=== PATIENT | male | born 1935 | race Two or more races ===

== ENCOUNTER 2017-03-04 06:49 | Inpatient (IN) | payer OTHER, BC ==
[2017-03-04] MEDS ORDERED: NS 1,000 ML IV ONE (07:01)
--- NOTE | 2017-03-04 07:05 | EDPHY ---
HPI/HX/ROS/PE/MDM Narrative: CHIEF COMPLAINT: GI Bleed HPI: This patient is an 81 year old male arriving with his family complaining of bloody stools onset 5:30am today. He has history of an upper GI bleed related to stomach ulcers in 2005 which resulted in cardiac arrest and transfusion of 10 units of blood, managed in [place]. His last colonoscopy was about 10 years ago, and was unremarkable. Yesterday, he felt well and had normal bowel movements. This morning he woke up at 5:30 and needed to go to toilet urgently. He had a large bowel movement consisting of lots of red blood with dark clots. He feels well otherwise, and denies abdominal pain, fever, or other associated symptoms. He takes daily 81mg Aspirin but is not anticoagulated otherwise. REVIEW OF SYSTEMS: Aside from elements discussed in the HPI, a comprehensive 10-point review of systems was reviewed and is negative. PMH: GI Bleed, Hernia Repair, Stent X1, TURP SOCIAL HISTORY: , lives in [place]. 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 ENT:Eyes are normal to inspection. ENT inspection normal. Neck: Normal inspection. Full range of motion. Respiratory:No respiratory distress. Breath sounds normal bilaterally. Cardiovascular: Regular rate and rhythm. Strong peripheral pulses. Normal cap refill. Abdomen:The abdomen is nontender to palpation. There are no peritoneal signs. There are normal bowel sounds. Back: Normal to inspection. No tenderness to palpation. Skin: Normal color. No rash. Warm and dry. Extremities: Normal appearance. Full range of motion. Neuro: Oriented x3. Normal motor function. Normal sensory function. ED Course: 81 year old male presents with hematochezia onset two hours ago. Physical exam unremarkable. Plan for labs including CBC, BMP, PTPTT. IV established, plan to administer 1L IV NS. The patient is well-appearing and hemodynamically stable. 7:[address] 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 He recommends admission for observation. 7:43 Spoke with hospitalist service. Dr. Vidales accepts admission to med/surg. Spoke with GI, they plan to scope the patient around 1pm today. Plan to prep patient for colonoscopy with [facility]. MDM: This patient presents with what appears to be a lower GI bleed. Given his history of massive upper GI bleed causing cardiac arrest, I think we need to tread cautiously. The patient will be admitted to hospitalist service and scoped by GI later today. I see no evidence for acute diverticulitis, bowel obstruction, bowel perforation or sepsis. - Data Points Laboratory Results: Laboratory Results 03/04/17 07:15 03/04/17 07:15 03/04/17 03/04/17 03/04/17 07:15 07:15 07:15 WBC 7.87 10^3/uL 10^3/uL (3.80-9.50) RBC 5.00 10^6/uL 10^6/uL (4.40-6.38) Hgb 15.2 g/dL g/dL (13.7-17.5) Hct 45.8 % % (40.0-51.0) MCV 91.6 fL fL (81.5-99.8) MCH 30.4 pg pg (27.9-34.1) MCHC 33.2 g/dL g/dL (32.4-36.7) RDW 13.4 % % (11.5-15.2) Plt Count 201 10^3/uL 10^3/uL (150-400) MPV 10.5 fL fL (8.7-11.7) Neut % (Auto) 58.7 % % (39.3-74.2) Lymph % (Auto) 30.0 % % (15.0-45.0) [place] % (Auto) 6.1 % % (4.5-13.0) Eos % (Auto) 3.8 % % (0.6-7.6) Baso % (Auto) 1.1 % % (0.3-1.7) Nucleat RBC Rel Count 0.0 % % (0.0-0.2) Absolute Neuts (auto) 4.62 10^3/uL 10^3/uL (1.70-6.50) Absolute Lymphs (auto) 2.36 10^3/uL 10^3/uL (1.00-3.00) Absolute Monos (auto) 0.48 10^3/uL 10^3/uL (0.30-0.80) Absolute Eos (auto) 0.30 10^3/uL 10^3/uL (0.03-0.40) Absolute Basos (auto) 0.09 10^3/uL 10^3/uL (0.02-0.10) Absolute Nucleated RBC 0.00 10^3/uL 10^3/uL (0-0.01) Immature Gran % 0.3 % % (0.0-1.1) Immature Gran # 0.02 10^3/uL 10^3/uL (0.00-0.10) PT 15.3 SEC H SEC (12.0-15.0) INR 1.21 H (0.83-1.16) APTT 31.8 SEC SEC (23.0-38.0) Sodium 140 mEq/L mEq/L (134-144) Potassium 4.2 mEq/L mEq/L (3.5-5.2) Chloride 102 mEq/L mEq/L (97-110) Carbon Dioxide 26 mEq/l mEq/l (22-31) Anion Gap 12 mEq/L mEq/L (8-16) BUN 25 mg/dL H mg/dL (7-23) Creatinine 1.6 mg/dL H mg/dL (0.7-1.3) Estimated GFR 41 Glucose 98 mg/dL mg/dL (70-100) Calcium 9.7 mg/dL mg/dL (8.5-10.4) Medications Given: Discontinued Medications Sodium Chloride (Ns) 1,000 mls @ 0 mls/hr IV EDNOW ONE; Wide Open PRN Reason: Protocol Stop: 03/04/17 07:02 Last Admin: 03/04/17 07:21 Dose: 1,000 mls General Time Seen by Provider: 03/04/17 07:00 Initial Vital Signs: Initial Vital Signs Temperature (C) 36.9 C 03/04/17 06:53 Heart Rate 88 03/04/17 06:53 Respiratory Rate 18 03/04/17 06:53 Blood Pressure 169/101 H 03/04/17 06:53 O2 Sat (%) 97 03/04/17 06:53 O2 Delivery Mode Room Air Allergies/Adverse Reactions: arsenic [Arsenic] Allergy (Intermediate, Verified 02/07/13 11:20) Rash omeprazole [Omeprazole] Allergy (Intermediate, Verified 08/30/09 02:37) latex Allergy (Mild, Verified 02/07/13 11:20) Rash SEASONAL Allergy (Mild, Uncoded 02/07/13 11:20) THROAT AND NOSE IRRITATION Home Medications: Medication Instructions Recorded Ascorbic Acid [Vitamin C 500 mg 1,000 mg PO DAILY 02/05/13 (OTC)] Atorvastatin Calcium [Lipitor 10 10 mg PO DAILY 02/05/13 mg (RX)] Cholecalciferol Vit D3 [Vitamin D3 2,000 units PO DAILY 02/05/13 2000 units (OTC)] Ranitidine HCl [Ranitidine HCl 150 150 mg PO HS 02/05/13 mg] Aspirin EC [Aspirin EC 81 mg (OTC)] 81 mg PO DAILY 02/13/13 Herbals/Supplements -Info Only 1 ea PO DAILY 03/04/17 Losartan/Hydrochlorothiazide 1 each PO DAILY 03/04/17 [Losartan-Hctz 100-25 Mg Tab] Magnesium Oxide [Magnesium Oxide 400 mg PO DAILY 03/04/17 400 mg (*)] Montelukast Sodium [Singulair 10 10 mg PO DAILY@1800 03/04/17 mg (*)] Multivitamins [Multivitamin (*)] 1 each PO DAILY 03/04/17 Departure - Departure Disposition: [facility] Inpatient Acute Clinical Impression: Hematochezia Condition: Fair Report Scribed for: Dylon Perdomo Report Scribed by: Shaina Butts Date of Report: 03/04/17 Time of Report: 07:04 Physician Review and Approval Statement: Portions of this note were transcribed by an ED scribe. I personally performed the history, physical exam, and medical decision making; and confirm the accuracy of the information in the transcribed note.
[2017-03-04 07:27] LABS: % IMMATURE GRANULYOCYTES 0.3 % (0.0-1.1); ABSOLUTE IMMATURE GRANULOCYTES 0.02 10^3/uL (0.00-0.10); ADD DIFF? NO; ADD MORPH? NO; ADD SCAN? NO; ATYPICAL LYMPHOCYTE FLAG 10 (0-99); FRAGMENT RBC FLAG 0 (0-99); HEMATOCRIT 45.8 % (40.0-51.0); HEMOGLOBIN 15.2 g/dL (13.7-17.5); LEFT SHIFT FLG 0 (0-99); LIPEMIA HEMOLYSIS FLAG 80 (0-99); MEAN CELL HEMOGLOBIN 30.4 pg (27.9-34.1); MEAN CELL HEMOGLOBIN CONCENTR. 33.2 g/dL (32.4-36.7); MEAN CELL VOLUME 91.6 fL (81.5-99.8); MEAN PLATELET VOLUME 10.5 fL (8.7-11.7); PLATELET CLUMPS FLAG 10 (0-99); PLATELET COUNT 201 10^3/uL (150-400); RED CELL DISTRIBUTION WIDTH 13.4 % (11.5-15.2)
[2017-03-04 07:36] LABS: INR 1.21 (0.83-1.16); PROTIME(PATIENT) 15.3 SEC (12.0-15.0)
[2017-03-04 07:37] LABS: APTT 31.8 SEC (23.0-38.0)
[2017-03-04 07:44] LABS: ANION GAP 12 mEq/L (8-16); CALCIUM 9.7 mg/dL (8.5-10.4); CARBON DIOXIDE 26 mEq/l (22-31); CHLORIDE 102 mEq/L (97-110); CREATININE 1.6 mg/dL (0.7-1.3); GLOMERULAR FILTRATION RATE 41; GLUCOSE 98 mg/dL (70-100); POTASSIUM 4.2 mEq/L (3.5-5.2); SODIUM 140 mEq/L (134-144)
[2017-03-04] MEDS ORDERED: GOLYTELY 4000 ML BTL PO ONE (07:45)
[2017-03-04] MEDS ORDERED: ACETAMINOPHEN 325 MG TAB PO PRN (08:23)
[2017-03-04] MEDS ORDERED: ONDANSETRON 4 MG/2 ML VIAL IVP PRN (08:23)
[2017-03-04] MEDS ORDERED: ONDANSETRON DISINTEGRATING 4 MG TAB PO PRN (08:23)
[2017-03-04] MEDS ORDERED: NS 1,000 ML IV SCH (08:30)
--- NOTE | 2017-03-04 10:40 | GHP ---
[f rep st] HISTORY AND PHYSICAL DATE OF ADMISSION: 03/04/2017 CHIEF COMPLAINT: Hematochezia. HISTORY OF PRESENT ILLNESS: An 81-year-old male with a history of coronary artery disease, hyperten aparna, and CKD, as well as a previous upper GI bleed leading to cardiac arrest and a 10 unit blood tr ansfusion, who presents with sudden onset of hematochezia the morning of presentation. Patient repo rts being in his normal state of health the day previous, normal oral intake, no abdominal pain and normal stools, when he awoke at 5:30 this morning with a sense of urgency needing to pass stool, and when he did, it was bright red blood. Patient has had multiple episodes of bright red bloody stool s this morning prompting his presentation to the emergency department for evaluation. In the ED, he denies any light headedness, vision changes, nausea, vomiting, or abdominal pain. The bloody stool s have persisted in the emergency department and upon arrival to the floor. Patient reports his las t GI bleed was much different with bloody vomit, symptoms of lightheadedness, and pain. Patient on my evaluation, denies palpitation, reports feeling a little bit tremulous and weak. Otherwise, no s ubjective systemic symptoms. PAST MEDICAL HISTORY: 1. Coronary artery disease. 2. Hypertension. 3. CKD. 4. History of upper gastrointestinal bleed, treated for H pylori. 5. Hiatal hernia. SOCIAL HISTORY: Negative for tobacco, alcohol, or illicit drugs. FAMILY HISTORY: Negative for colon cancer or lower GI bleeds. ADVANCED DIRECTIVES: Patient is full cor, full tube. REVIEW OF SYSTEMS: A 10-point review of systems is negative with the exception of that reported in the HPI. PHYSICAL EXAMINATION: VITAL SIGNS: Blood pressure 175/101, heart rate 97, respiratory rate 16, 94% on room air, 36.5. GENERAL: This is a healthy-appearing elderly male in no acute distress. HEENT : Notable for moist mucous membranes. Eye exam is negative for any icterus. CARDIAC: Patient is regular rate and rhythm. PULMONARY: Clear to auscultation bilaterally. GASTROINTESTINAL: Positiv e bowel sounds. ABDOMEN: Soft and nontender to palpation in all 4 quadrants. MUSCULOSKELETAL: Ne gative for any lower extremity edema. SKIN: Negative for any rashes. NEUROLOGIC: He is alert and oriented x3. PSYCHIATRIC: He is pleasant and cooperative on interview and examination. DATA: White count 7.8, hematocrit 45, hemoglobin of 15.2, INR 1.2, creatinine 1.6 which appears dee r baseline. Telemetry which I personally reviewed and interpreted shows sinus rhythm in the 80s. ASSESSMENT AND PLAN: This is an 81-year-old male presenting with bright red blood per rectum. 1. Acute lower gastrointestinal bleed. Patient has a concerning upper gastrointestinal bleed histo ry, although I suspect the source is quite different. Made the patient n.p.o. I have initiated a f luid bolus, typed and crossed in the emergency department, continuing maintenance fluids and preppin g with [facility] for anticipated colonoscopy this afternoon. Will watch the patient's stooling close ly, as well as his vital signs, and communicate with Gastroenterology if the acuity of his bleeding changes in any way. Will obviously hold all cardiac medications including aspirin at this time. 2. Coronary artery disease. 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 W ill hold his medications in the acute setting of gastrointestinal bleed. Can reinitiate afterward. 3. Chronic kidney disease. Patient appears near his previously measured baselines again and is rec eiving IV fluid resuscitation. We can follow his renal function after his procedure. PROPHYLAXIS: Heparin is contraindicated. Will place SCDs. DIET: N.p.o. for the GI suite. DISPOSITION: I am expecting greater than 2 midnights, as the patient is presenting with a precipito us GI bleed, will require diagnostics, potential intervention, and postprocedural monitoring. I hav e discussed the case with the emergency room physician. Patient will be triaged to the medical/surg [facility] floor for care. /[id number]/MODL
[2017-03-04 11:46] LABS: HEMATOCRIT 40.4 % (40.0-51.0); HEMOGLOBIN 13.5 g/dL (13.7-17.5)
[2017-03-04] MEDS ORDERED: MIDAZOLAM 2 MG/2 ML VIAL IVP ONE (13:11)
--- NOTE | 2017-03-04 13:13 | PDANEPAE ---
ANE Past Medical History - Cardiovascular History Hx Hypertension: Yes Hx Arrhythmias: No Hx Chest Pain: No Hx Coronary Artery / Peripheral Vascular Disease: Yes Cardiovascular History Comment: LaD stent, 10 years ago, now good exercise tolerance, asymptomatic - Pulmonary History Hx Oxygen in Use at Home: No Hx Sleep Apnea: No Sleep Apnea Screening Result - Last Documented: Positive - Endocrine History Hx Diabetes: No ANE Patient History - Allergies Allergies/Adverse Reactions: arsenic [Arsenic] Allergy (Intermediate, Verified 02/07/13 11:20) Rash omeprazole [Omeprazole] Allergy (Intermediate, Verified 08/30/09 02:37) latex Allergy (Mild, Verified 02/07/13 11:20) Rash SEASONAL Allergy (Mild, Uncoded 02/07/13 11:20) THROAT AND NOSE IRRITATION - Home Medications Home Medications: Ascorbic Acid [Vitamin C 500 mg (OTC)] 1,000 mg PO DAILY 02/05/13 [Last Taken ] Atorvastatin Calcium [Lipitor 10 mg (RX)] 10 mg PO DAILY 02/05/13 [Last Taken ] Cholecalciferol Vit D3 [Vitamin D3 2000 units (OTC)] 2,000 units PO DAILY [Last Taken 03/03/17] Ranitidine HCl [Ranitidine HCl 150 mg] 150 mg PO HS 02/05/13 [Last Taken ] Aspirin EC [Aspirin EC 81 mg (OTC)] 81 mg PO DAILY 02/13/13 [Last Taken 03/03/17 ] Herbals/Supplements -Info Only 1 ea PO DAILY 03/04/17 [Last Taken Unknown] Losartan/Hydrochlorothiazide [Losartan-Hctz 100-25 Mg Tab] 1 each PO DAILY 03/04 [Last Taken 03/03/17] Magnesium Oxide [Magnesium Oxide 400 mg (*)] 400 mg PO DAILY 03/04/17 [Last Taken 03/03/17] Montelukast Sodium [Singulair 10 mg (*)] 10 mg PO DAILY@1800 03/04/17 [Last Taken 03/03/17] Multivitamins [Multivitamin (*)] 1 each PO DAILY 03/04/17 [Last Taken 03/03/17] - NPO status NPO Since - Liquids (Date): 03/04/17 NPO Since - Liquids (Time): 11:15 NPO Since - Solids (Date): 03/03/17 NPO Since - Solids (Time): 21:00 - Smoking Hx Smoking Status: Never smoked ANE Labs/Vital Signs - Labs Result Diagrams: 03/04/17 11:30 03/04/17 07:15 - Vital Signs Blood Pressure: 145/84 Heart Rate: 76 Respiratory Rate: 16 O2 Sat (%): 94 Height: 182.88 cm Weight: 78.018 kg ANE Physical Exam - Airway Neck exam: decreased ROM Mouth exam: normal dental/mouth exam - Pulmonary Pulmonary: no respiratory distress - Cardiovascular Cardiovascular: regular rate and rhythym - ASA Status ASA Status: II
[2017-03-04] MEDS ORDERED: fentaNYL 100 MCG/2 ML INJ ONE (13:16)
[2017-03-04] MEDS ORDERED: PROPOFOL/EMULSION 500 MG/50 ML BOTTLE IV ONE (13:16)
[2017-03-04] MEDS ORDERED: NALOXONE HCL 0.4 MG/ML INJ IVP PRN (13:45)
--- NOTE | 2017-03-04 13:50 | GCON ---
[f rep st] CONSULTATION DATE OF CONSULTATION: 03/04/2017 REFERRING PHYSICIAN: Dr. Ambar Noriega REASON FOR CONSULTATION: Hematochezia. CHIEF COMPLAINT: Hematochezia. HISTORY OF PRESENT ILLNESS: The patient is an 81-year-old male with a history of coronary artery disease, hypertension, chronic kidney disease, who presents to [facility] with complaints of hematochezia. The patient was in normal state of health until this morning when he suddenly awoke and had a bowel movement with a large amount of bright red blood. He did experience urgency. He had several similar episodes and thus, came to the emergency room for evaluation. He denies any exacerbating or alleviating factors to his symptoms. He denies any abdominal pain, change in bowel habits, chest pain, shortness of breath, or fevers. He did have a colonoscopy performed by Dr. Lemons in our group on 05/06/2008. He was noted to have sigmoid diverticulosis I am being asked by Dr. Noriega in consultation to evaluate the patient in regard to hematochezia. PAST MEDICAL HISTORY: 1. Coronary artery disease. 2. Hypertension. 3. Chronic kidney disease. 4. A prior history of upper GI bleed in [place] requiring 10 units of packed RBCs. 5. Hypercholesterolemia. PAST SURGICAL HISTORY: Hernia repair. TURP. ALLERGIES: Omeprazole, latex. MEDICATIONS: Atorvastatin, vitamin D3, magnesium, ranitidine, 81 mg of aspirin , losartan/hydrochlorothiazide. 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 FAMILY HISTORY: No history of colon cancer. REVIEW OF SYSTEMS: A 14-point comprehensive review of systems was asked. Pertinent positives and negatives per HPI. PHYSICAL EXAM: VITAL SIGNS: Blood pressure 175/101, pulse 98, respirations 16 , temperature 36.5. GENERAL: Awake, alert, oriented x3. No distress. HEENT: Anicteric. Moist mucosa. NECK: No JVD. CARDIOVASCULAR: Regular rate and rhythm. Positive S1, S2. LUNGS: Clear to auscultation bilaterally. No wheezes, rales or rhonchi. ABDOMEN: Soft, nontender, nondistended. Positive bowel sounds. No guarding. No rebound. EXTREMITIES: No clubbing, cyanosis or edema. NEUROLOGIC: Cranial nerves 2 through 12 grossly intact. PSYCH: Normal affect. SKIN: No rash. LYMPH: No lymphadenopathy. MUSCULOSKELETAL: No obvious joint effusions. LABORATORY: Hemoglobin 13.5, hematocrit 40.4, platelets 201. INR 1.21. Sodium 140, potassium 4.2, chloride 102, bicarb 26, BUN 25, creatinine 1.6. ASSESSMENT AND PLAN: 1. Hematochezia -- did have a prior colonoscopy in 2007 with diverticulosis found. Etiology? Diverticular bleed versus hemorrhoidal versus other? I recommend to proceed with colonoscopic evaluation. The risks, benefits, and alternatives of the procedure were discussed in great detail with the patient. The risk of infection, bleeding, perforation, and sedation were discussed. All questions answered. Informed consent was obtained. 2. History of hypertension. 3. History of hypercholesteremia. 4. History of coronary artery disease. Thank you very much for this consultation. /[id number]/MODL MTDD
[2017-03-04] MEDS ORDERED: RANITIDINE 50 MG/2 ML VIAL ONE (13:55)
[2017-03-04] MEDS ORDERED: DEXAMETHASONE 4 MG/ML VIAL ONE (13:55)
[2017-03-04] MEDS ORDERED: ONDANSETRON 4 MG/2 ML VIAL ONE (13:55)
--- NOTE | 2017-03-04 13:55 | POSTANESTH ---
Post Anesthetic Evaluation Respiratory Status: Normal, Stable Level of Consciousness/Mental Status: Moderately Sleepy Pain Control: Adequate, Prn Tx Ordered Nausea/Vomiting Control: Adequate, Prn Tx Ordered Complications Possibly Related to Anesthesia: None Noted
--- NOTE | 2017-03-04 13:56 | SOAPPROG ---
SOAP Progress Note Assessment/Plan: Assessment: Plan: 03/04/17 13:55 GI note S/p colonoscopy. + Diverticulosis, sigmoid (only). Suspect diverticular bleed is cause of symptoms. No blood noted during exam. Will start clear liq diet. If any recurrence, recommend bleeding scan/IR evaluation. Objective: Vital Signs Temp Pulse Resp BP Pulse Ox 36.9 C 76 16 145/84 H 94 03/04/17 09:42 03/04/17 13:13 03/04/17 13:13 03/04/17 13:13 03/04/17 13:13 Laboratory Results 03/04/17 11:30 PT 15.3 SEC (12.0-15.0) H 03/04/17 07:15 INR 1.21 (0.83-1.16) H 03/04/17 07:15 ICD10 Worksheet Patient Problems: Problems Problem Status Onset Hematochezia Acute
--- NOTE | 2017-03-04 15:26 | GPN ---
[f rep st] PROCEDURE NOTE DATE OF PROCEDURE: 03/04/2017 PROCEDURE: Colonoscopy. INDICATION: The patient is an 81-year-old male, who presents for evaluation of bright red blood per rectum. CONSENT: Risks, benefits, and alternatives of the procedure were discussed in great detail with the patient. Risk of infection, bleeding, perforation, and sedation were discussed. All questions answered. Informed consent was obtained. MEDICATIONS: Propofol. Please see Anesthesia record for details. ESTIMATED BLOOD LOSS: Insignificant. COLONOSCOPIC EVALUATION: A rectal exam was performed and no palpable masses felt. The scope was introduced into the rectum and advanced to the cecum where the ileocecal valve and appendiceal orifice were seen. The terminal ileum was intubated. No blood was seen during the exam. In the sigmoid colon, multiple small and large diverticula were noted. This was flushed and no obvious site of bleed was noted. On retroflexion, very small internal hemorrhoids were visualized. IMPRESSION: 1. Sigmoid diverticulosis. 2. Small internal hemorrhoids. 3. Suspect this is a sigmoid diverticular bleed. RECOMMENDATIONS: 1. Start clear liquid diet. 2. If recurrence of bleed, would recommend a tagged RBC scan/IR evaluation. /[id number]/MODL MTDD
[2017-03-05 04:58] LABS: % IMMATURE GRANULYOCYTES 0.4 % (0.0-1.1); ABSOLUTE IMMATURE GRANULOCYTES 0.03 10^3/uL (0.00-0.10); ADD DIFF? NO; ADD MORPH? NO; ADD SCAN? NO; ATYPICAL LYMPHOCYTE FLAG 0 (0-99); FRAGMENT RBC FLAG 0 (0-99); HEMATOCRIT 38.1 % (40.0-51.0); HEMOGLOBIN 12.6 g/dL (13.7-17.5); LEFT SHIFT FLG 10 (0-99); LIPEMIA HEMOLYSIS FLAG 80 (0-99); MEAN CELL HEMOGLOBIN 30.4 pg (27.9-34.1); MEAN CELL HEMOGLOBIN CONCENTR. 33.1 g/dL (32.4-36.7); MEAN PLATELET VOLUME 10.5 fL (8.7-11.7); PLATELET CLUMPS FLAG 0 (0-99); PLATELET COUNT 180 10^3/uL (150-400); RED BLOOD CELL COUNT 4.14 10^6/uL (4.40-6.38); RED CELL DISTRIBUTION WIDTH 13.4 % (11.5-15.2)
[2017-03-05 05:11] LABS: ANION GAP 6 mEq/L (8-16); CALCIUM 8.8 mg/dL (8.5-10.4); CARBON DIOXIDE 26 mEq/l (22-31); CHLORIDE 105 mEq/L (97-110); CREATININE 1.6 mg/dL (0.7-1.3); GLOMERULAR FILTRATION RATE 41; GLUCOSE 111 mg/dL (70-100); POTASSIUM 4.6 mEq/L (3.5-5.2); SODIUM 137 mEq/L (134-144)
[2017-03-05 07:30] VITALS: TEMP 97.7
[2017-03-05] MEDS ORDERED: LOSARTAN/HCTZ 50/12.5 1 TAB PO SCH (09:00)
[2017-03-05] MEDS ORDERED: NON-FORMULARY NEW DRUG (Losartan/Hydrochlorothiazide [Losartan-Hctz 100-25 Mg Tab] 1 EACH) PO SCH (09:00)
[2017-03-05 11:34] VITALS: BP 151/78; PULSE 77; RESP 16; O2SAT 93
--- NOTE | 2017-03-05 15:18 | GDS ---
[f rep st] DISCHARGE SUMMARY DISCHARGE DIAGNOSES: Include: 1. Acute lower gastrointestinal bleed secondary to diverticular bleed. 2. Acute anemia secondary to blood loss. 3. History of upper gastrointestinal bleed secondary to Helicobacter pylori and ulcers. 4. Coronary artery disease. 5. Hypertension. 6. Chronic kidney disease. 7. Hiatal hernia. HISTORY OF PRESENT ILLNESS: An 81-year-old male with a history of coronary disease on aspirin, who presents with sudden onset of hematochezia. For details of patient's initial presentation, please s ee the history and physical dated 03/04/2017. CONSULTATIVE SERVICES: Include Gastroenterology. PROCEDURES: 03/04/2017, patient had a colonoscopy which found diverticulosis and stigmata consisten t with acute diverticular bleed. HOSPITAL COURSE: By issue: 1. Acute lower GI bleed: Patient had multiple bowel movements of ragini blood, dropped his hemoglob in from 15-12 overnight, and then had total resolution of his bleeding after colonoscopy. Patient h as tolerated oral intake, vital signs are stable, and no recurrent bleeding. He is being discharged to home off aspirin with instructions to follow with his outpatient art professor and to return if h e redevelops hematochezia. 2. Coronary artery disease: Patient did not have chest pain complaints. He is being discharged on his normal cardiac medications without aspirin. Again, will follow with Dr. Marquez for re-initia tion of his aspirin in the next 2-4 weeks. 3. Hypertension: Patient's blood pressures remained controlled during this hospital stay. We held his antihypertensives overnight. On the day of disposition, his systolic blood pressures are in th e 140s to 150s, and he has safely been re-initiated on his losartan and hydrochlorothiazide. 4. History of upper GI: Patient has continued on his evening ranitidine. 5. Anemia secondary to acute blood loss. Patient's hemoglobin is 12 on the date of disposition. H e does not require transfusion and can simply have his H and H monitored in the outpatient setting. MEDICATIONS AT TIME OF DISPOSITION: Please reference med rec printed on 03/05/2017. FOLLOWUP APPOINTMENTS: Include with Dr. Marquez in the next 2-4 weeks for post disposition followu p and re-initiation of aspirin therapy. PENDING STUDIES AT DISPOSITION: None. TIME SPENT: I spent greater than 30 minutes in the planning and coordination of this discharge. /[id number]/MODL
== END 2017-03-05 13:22 | disposition home or self-care (01) | DRG 378 ==
LOC: OBSVTOIN 08:23 → F3N 08:34
PROVIDERS: ADMIT Internal Medicine; ATTEND Hospitalist
PROC: 0DJD8ZZ Inspection of Lower Intestinal Tract, Via Natural or Artificial Opening Endoscopic (ICD-10-PCS; principal; 2017-03-04 13:30)
DX: K57.31 Diverticulosis of large intestine without perforation or abscess with bleeding (principal); D62 Acute posthemorrhagic anemia; I25.10 Atherosclerotic heart disease of native coronary artery without angina pectoris; I12.9 Hypertensive chronic kidney disease with stage 1 through stage 4 chronic kidney disease, or unspecified chronic kidney disease; N18.9 Chronic kidney disease, unspecified; K44.9 Diaphragmatic hernia without obstruction or gangrene; Z79.82 Long term (current) use of aspirin; K64.8 Other hemorrhoids
CPT/HCPCS: J1100; J2250; J2405; J2704; J2780; J3010

== ENCOUNTER → 2017-12-29 | Outpatient (CLI) | payer OTHER, BC | LOC: BHFA 11:30 | PROVIDERS: ATTEND Internal Medicine Interventional Cardiology | DX: I25.10 Atherosclerotic heart disease of native coronary artery without angina pectoris (principal); I10 Essential (primary) hypertension; E78.5 Hyperlipidemia, unspecified; Z95.5 Presence of coronary angioplasty implant and graft ==